=== PATIENT | female | born 1940 | race Caucasian/White ===

== ENCOUNTER 2018-05-07 14:26 | Inpatient (IN) | payer MEDICARE ==
[~2018-05-07] VITALS: Ht 165.1 cm; Wt 79.4 kg
[2018-05-07 14:55] LABS: BASOPHILS % (AUTO) 0.3 % (0.0-5.0); EOSINOPHILS % (AUTO) 0.5 % (0.0-8.0); HEMATOCRIT 35.9 % (36-48); LYMPHOCYTES % (AUTO) 13.9 % (21.0-51.0); MEAN CORPUSCULAR HEMOGLOBIN 31.8 pg (27.0-33.0); MEAN CORPUSCULAR HGB CONC 35.1 g/dL (32.0-36.0); MEAN CORPUSCULAR VOLUME 90.6 fL (79-99); MONOCYTES % (AUTO) 15.9 % (3.0-13.0); NEUTROPHILS % (AUTO) 69.4 % (40.0-77.0); PLATELET COUNT (AUTO) 237 K/uL (130-400); RED BLOOD CELL COUNT(AUTO) 3.96 MIL/uL (4.00-5.50); RED CELL DISTRIBUTION WIDTH 12.8 % (11.0-15.5); WHITE BLOOD COUNT (AUTO) 5.6 K/uL (4.8-10.8)
[2018-05-07 15:17] LABS: BILIRUBIN,TOTAL 0.4 mg/dL (0.2-1.0); CREATININE 1.1 mg/dL (0.5-1.5); TOTAL PROTEIN, SERUM 6.9 g/dL (6.0-8.3)
[2018-05-07 15:19] LABS: POTASSIUM 2.7 mmol/L (3.5-5.1)
[2018-05-07] MEDS ORDERED: LIDOCAINE HCL-MPF 1% 2ML VIAL IVP PRN (16:00)
[2018-05-07] MEDS ORDERED: POTASSIUM CHLORIDE 10MEQ/100ML 100 ML IV PRN (16:00)
[2018-05-07] MEDS ORDERED: MORPHINE SULFATE 2 MG/ML 1ML SYG IV PRN (16:00)
[2018-05-07] MEDS ORDERED: ONDANSETRON HCL 4 MG/2 ML VIAL IV PRN (16:00)
[2018-05-07 16:52] LABS: APPEARANCE,URINE Clear (CLEAR); BILIRUBIN,URINE Negative (NEGATIVE); COLOR,URINE Yellow (YELLOW); GLUCOSE, URINE (UA) Negative (NEGATIVE); KETONES,URINE Negative (NEGATIVE); LEUKOCYTE ESTERASE ,URINE Small (NEGATIVE); NITRATE,URINE Negative (NEGATIVE); OCCULT BLOOD,URINE Trace (NEGATIVE); PH,URINE 5.5 (5.0-8.0); PROTEIN,URINE Negative (NEGATIVE); UROBILINOGEN,URINE 0.2 mg/dL (0.2-1.0)
[2018-05-07] MEDS ORDERED: LIDOCAINE HCL-MPF 1% 2ML VIAL ONE (17:05)
[2018-05-07] MEDS ORDERED: POTASSIUM CHLORIDE 10MEQ/100ML 100 ML IV ONE (17:05)
[2018-05-07 17:27] LABS: BACTERIA,URINE Rare /HPF (None Seen); RBC,URINE 0-1 /HPF (0-1)
[2018-05-07 17:28] LABS: SQUAMOUS EPITHELIAL CELL,UR Rare /HPF (0-2); TRANSITIONAL EPI CELLS,URINE Rare /HPF (None Seen)
[2018-05-07 17:50] VITALS: BP 127/63
[2018-05-07 19:05] VITALS: BP 125/63
[2018-05-07] MEDS ORDERED: MAGNESIUM 2GM PREMIX 50ML 50 ML IV PRN (20:00)
[2018-05-07] MEDS: 1/2 NORMAL SALINE + 20 MEQ KCL 1,000 ML IV SCH (20:20)
[2018-05-07] MEDS ORDERED: LISI-613 PO (20:30)
[2018-05-07] MEDS ORDERED: CHOL20004 PO (20:30)
[2018-05-07] MEDS ORDERED: UBID100C4 PO (20:30)
[2018-05-07] MEDS ORDERED: MULT-1203 PO (20:30)
[2018-05-07] MEDS ORDERED: MAGN250T10 PO (20:30)
[2018-05-07] MEDS ORDERED: ACET-2041 PO (20:30)
[2018-05-07] MEDS ORDERED: CALC-190 PO (20:30)
[2018-05-07] MEDS ORDERED: OMEG1CAP67 PO (20:30)
[2018-05-07] MEDS ORDERED: VERA-6 PO (20:30)
[2018-05-07] MEDS ORDERED: SIMV10TA6 PO (20:30)
[2018-05-07] MEDS ORDERED: DEXL60CA3 PO (20:30)
[2018-05-07] MEDS ORDERED: DESL5TAB PO (20:30)
[2018-05-07] MEDS: FAMOTIDINE/PF 20 MG/2 ML VIAL IV SCH (22:37)
[2018-05-07] MEDS ORDERED: POTASSIUM CHLORIDE 20MEQ/100ML 100 ML IV ONE (23:29)
[2018-05-08 00:10] VITALS: BP 134/58
[2018-05-08 04:18] VITALS: BP 133/54
[2018-05-08] MEDS: 1/2 NORMAL SALINE + 20 MEQ KCL 1,000 ML IV SCH ×2 (05:42→21:41)
[2018-05-08 07:30] VITALS: BP 126/54
--- NOTE | 2018-05-08 07:30 | NUR ---
PATIENT UPDATE ADMITTED A 78 YR OLD FEMALE FOR HYPOKALEMIA WITH A k+ OF 2.7 AFTER 5 DAYS OF PERSISTENT DIARRHEA, FAILED OUTPT TREATMENT. CACHECTIC LOOKING , STARTED ON THE IVF OF 1/2 NS WITH 20MEQ OF KCL AT 100 CC/HR, HYPOKALEMIA PROTOCOL STARTED. HAD A TOTAL OF 4 LOOSE BOWEL MOVEMENTS EPISODE, LAST ONE SENT TO LAB FOR C. DIFFICILE PER PROTOCOL. PT UP AD JANETH, NO COMPLAINTS OF ANY ABDOMINAL PAIN, NO NAUSEA NOR VOMITING , VITAL SIGNS STABLE. 2 GMS OF MGSO4 GIVEN FOR A MG OF 1.8. PATIENT SLEPT BETTER DURING THE LAST 3 HRS, STATED FEELING REFRESHED , A WHOLE LOT BETTER AFTER THE HYDRATION, WAS THANKFUL THAT SHE'S FEELING BETTER THIS AM. WILL CONTINUE TO MONITOR, RECHECK AM LABS THIS AM POST SUPPLEMENTATION.
[2018-05-08 08:06] LABS: BASOPHILS % (AUTO) 0.2 % (0.0-5.0); EOSINOPHILS % (AUTO) 0.4 % (0.0-8.0); HEMATOCRIT 32.9 % (36-48); LYMPHOCYTES % (AUTO) 18.9 % (21.0-51.0); MEAN CORPUSCULAR HEMOGLOBIN 31.4 pg (27.0-33.0); MEAN CORPUSCULAR VOLUME 92.4 fL (79-99); NEUTROPHILS % (AUTO) 65.5 % (40.0-77.0); PLATELET COUNT (AUTO) 241 K/uL (130-400); RED BLOOD CELL COUNT(AUTO) 3.57 MIL/uL (4.00-5.50); WHITE BLOOD COUNT (AUTO) 4.5 K/uL (4.8-10.8)
[2018-05-08 08:55] LABS: ALBUMIN 2.5 g/dL (3.5-5.0); BILIRUBIN,TOTAL 0.3 mg/dL (0.2-1.0); CREATININE 0.6 mg/dL (0.5-1.5); MAGNESIUM 2.2 mg/dL (1.80-2.40); POTASSIUM 3.5 mmol/L (3.5-5.1)
[2018-05-08] MEDS: CHOLECALCIFEROL 2000 UNIT PO SCH (09:00)
[2018-05-08] MEDS: ENOXAPARIN SODIUM 30 MG/0.3 ML SQ SCH (09:00)
[2018-05-08] MEDS: MAGNESIUM OXIDE 250 MG PO SCH (09:00)
[2018-05-08] MEDS: DESLORATADINE 5 MG PO SCH (09:00)
[2018-05-08] MEDS: UBIDECARENONE 100 MG PO SCH (09:00)
[2018-05-08] MEDS ORDERED: DIPHENHYDRAMINE HCL 25 MG CAPSULE PO PRN (09:00)
[2018-05-08] MEDS: ***HM***(Dexlansoprazole (Dexilant) 60 MG) PO SCH (09:14)
[2018-05-08] MEDS: VERAPAMIL HCL 240 MG SRTAB PO SCH (09:19)
[2018-05-08] MEDS ORDERED: ACETAMINOPHEN EXTRA STRENGTH 500 MG TABLET PO PRN (09:30)
[2018-05-08] MEDS: CALCIUM 600 + VITAMIN D 400 TABLET PO SCH (09:38)
[2018-05-08] MEDS: LISINOPRIL 20 MG TABLET PO SCH (09:39)
[2018-05-08] MEDS: FAMOTIDINE/PF 20 MG/2 ML VIAL IV SCH ×2 (09:39→21:41)
[2018-05-08] MEDS: FISH OIL 1000 MG/CAP PO SCH (09:42)
[2018-05-08] MEDS: MULTIVITAMIN TABLET PO SCH (09:42)
[2018-05-08 11:00] VITALS: BP 107/49
[2018-05-08 15:30] VITALS: BP 122/54
[2018-05-08] MEDS ORDERED: LOPERAMIDE HCL 2 MG CAP PO PRN (15:45)
--- NOTE | 2018-05-08 18:20 | NUR ---
INITIAL: Met w pt and spouse this afternoon to discuss dcp. Pt is a [place] from [facility]. Pt living w spouse in a mobile home. She is independent w ambulation and aDLs. Does not own any DME. Pt states that she feels safe and comfortable to return home w spouse @ dc. Will continue to follow and wait for Md recommendations. Addendum: 05/08/18 at 1821 by LEA BONNER CM Amended: Links added.
[2018-05-08 19:10] VITALS: BP 115/57
[2018-05-08] MEDS ORDERED: SIMVASTATIN 10 MG TABLET PO SCH (21:00)
--- NOTE | 2018-05-08 21:45 | NUR ---
MEDS PT RESTING WELL IN BED. NO CONCERNS VERBALIZED. PT CLAIMS THAT DIARRHEA HAD ALREADY STOPPED. DUE MEDS ADMINISTERED, TOLERATED WELL. KEPT RESTED AND COMFORTABLE. CALL LIGHT WITHIN REACH. WILL MONITOR PT.
[2018-05-09 00:12] VITALS: BP 121/58
[2018-05-09] MEDS: 1/2 NORMAL SALINE + 20 MEQ KCL 1,000 ML IV SCH (01:33)
--- NOTE | 2018-05-09 01:33 | NUR ---
ASSIST PT ASSISTED TO THE RESTROOM. REQUESTED FOR ANOTHER PILLOW, HOUSE KEEPING CALLED NO AVAILABLE PILLOW ON THE FLOOR. NEW IV BAG HUNG. ENCOURAGED TO REST AND SLEEP. CALL LIGHT WITHIN REACH. WILL MONITOR PT.
[2018-05-09 04:10] VITALS: BP 110/54
[2018-05-09] MEDS: ***HM***(Dexlansoprazole (Dexilant) 60 MG) PO SCH (05:48)
[2018-05-09 05:52] LABS: BASOPHILS % (AUTO) 0.3 % (0.0-5.0); HEMATOCRIT 31.1 % (36-48); LYMPHOCYTES % (AUTO) 26.7 % (21.0-51.0); MEAN CORPUSCULAR HEMOGLOBIN 31.7 pg (27.0-33.0); MEAN CORPUSCULAR VOLUME 90.7 fL (79-99); MONOCYTES % (AUTO) 13.2 % (3.0-13.0); NEUTROPHILS % (AUTO) 58.8 % (40.0-77.0); NUCLEATED RED BLOOD CELLS 0.1 % (0.0-0.19); PLATELET COUNT (AUTO) 239 K/uL (130-400); RED BLOOD CELL COUNT(AUTO) 3.43 MIL/uL (4.00-5.50); WHITE BLOOD COUNT (AUTO) 4.6 K/uL (4.8-10.8)
[2018-05-09 06:03] LABS: CREATININE 0.6 mg/dL (0.5-1.5); POTASSIUM 3.1 mmol/L (3.5-5.1)
[2018-05-09] MEDS ORDERED: POTASSIUM CHLORIDE 20 MEQ ERTAB PO PRN (06:45)
[2018-05-09] MEDS ORDERED: POTASSIUM CHLORIDE 20MEQ/100ML 100 ML IV PRN (06:45)
[2018-05-09] MEDS ORDERED: LIDOCAINE HCL-MPF 1% 2ML VIAL IVP PRN (06:45)
[2018-05-09] MEDS ORDERED: POTASSIUM CHLORIDE 10% ELIXIR 20 MEQ/15 ML UDCUP PO PRN (06:45)
--- NOTE | 2018-05-09 06:45 | NUR ---
KCL PT'S KCL=3.1. CHANGED NPO HYPOKALEMIA PROTOCOL TO PO PROTOCOL PT IS ALREADY TOLERATING PO DIET. FOR MORE CARE AND MANAGEMENT. PENDING TO START PO POTASSIUM WHEN PHARMACY VERIFIES MEDS.
[2018-05-09 07:30] VITALS: BP 125/56
[2018-05-09] MEDS: FISH OIL 1000 MG/CAP PO SCH (09:00)
[2018-05-09] MEDS: CHOLECALCIFEROL 2000 UNIT PO SCH (09:00)
[2018-05-09] MEDS: UBIDECARENONE 100 MG PO SCH (09:00)
[2018-05-09] MEDS: CALCIUM 600 + VITAMIN D 400 TABLET PO SCH (09:00)
[2018-05-09] MEDS: MULTIVITAMIN TABLET PO SCH (09:00)
[2018-05-09] MEDS: MAGNESIUM OXIDE 250 MG PO SCH (09:00)
[2018-05-09] MEDS: DESLORATADINE 5 MG PO SCH (09:00)
[2018-05-09] MEDS: ENOXAPARIN SODIUM 30 MG/0.3 ML SQ SCH (09:00)
[2018-05-09] MEDS ORDERED: POTASSIUM CHLORIDE 20 MEQ ERTAB PO SCH (09:00)
[2018-05-09] MEDS: FAMOTIDINE/PF 20 MG/2 ML VIAL IV SCH (09:00)
[2018-05-09] MEDS: LISINOPRIL 20 MG TABLET PO SCH (09:13)
[2018-05-09] MEDS: VERAPAMIL HCL 240 MG SRTAB PO SCH (09:31)
[2018-05-09 11:00] VITALS: BP 115/50
[2018-05-09 15:22] LABS: ALBUMIN 2.7 g/dL (3.5-5.0); BILIRUBIN,TOTAL 0.2 mg/dL (0.2-1.0); CREATININE 0.6 mg/dL (0.5-1.5); POTASSIUM 3.4 mmol/L (3.5-5.1); TOTAL PROTEIN, SERUM 6.1 g/dL (6.0-8.3)
--- NOTE | 2018-05-09 16:33 | NUR ---
PT ON HYPOKALEMIA PROTOCOL, POTASSIUM COVERED X3, REPEAT K. OF 3.4, PT EDUCATED ON POTASSIUM FOOD TO EAT, LIST OF PCP GIVEN TO FOLLOW UP WITH, PT VERBALIZED UNDERSTANDING, IV TAKEN OUT, NO COMPLICATION NOTED, PT TAKEN DOWN IN W/C ACCOMPANIED BY SPOUSE.
== END 2018-05-09 16:15 | disposition home or self-care (01) | DRG 392 ==
LOC: EDH 14:26 → EDHIP 15:54 → 3CH 18:28
PROVIDERS: ADMIT Hospitalist; ATTEND Hospitalist
DX: A09 Infectious gastroenteritis and colitis, unspecified (principal); E87.6 Hypokalemia; E78.00 Pure hypercholesterolemia, unspecified; I10 Essential (primary) hypertension; M19.90 Unspecified osteoarthritis, unspecified site; Z88.0 Allergy status to penicillin
CPT/HCPCS: 36415; 80048; 80053; 81001; 83630; 83690; 83735; 85025; 87046; 87177; 87324; 87507; G0378; J1650; J3475; J3480; J3490